=== PATIENT | female | born 1955 ===

== ENCOUNTER → 2018-05-26 | Outpatient (CLI) | payer OTHER ==
[~2018-05-26] MED LIST: ACE325 PO; EST3 PO; EST42T PV; FISH OIL 1,2001 CAP PO; GEMF600T92 PO; HYDR-2970 PO; NEB5 PO; SIMV-49 PO; TRILI135PT PO; UBID100C33 PO; VER100 PO
--- NOTE | 2018-05-26 13:49 | RADIOLOGY IMAGING REPORT ---
[place] [facility] [place] SARA ESPARZA : [id number] MR: [id number]: [id number] EXAM DATE: ORDERING PHYSICIAN: SHON SELF TECHNOLOGIST: Amy Bowers PROCEDURE:BILATERAL DIGITAL SCREENING MAMMOGRAM WITH CAD ASSISTED INTERPRETATION & 3D TOMOSYNTHESIS COMPARISON:Prior mammograms dated 05/04/17, 04/08/16, 04/10/15, 04/01/14, 03/22/13, 03/08/13 INDICATIONS:SCREENING FINDINGS: Moderately heterogeneous fibroglandular tissue is seen throughout the breasts. The parenchymal pattern has remained stable allowing for difference in mammographic technique & patient positioning. There is no evidence of malignant appearing mass, malignant appearing calcification or other secondary sign of malignancy in either breast. DIAGNOSTIC CATEGORY 1--NEGATIVE. RECOMMENDATIONS: ROUTINE MAMMOGRAM AND CLINICAL EVALUATION. IMPRESSION: BIRADS 1: Negative. No significant abnormality is seen. Dictated by: Mary Garcia M.D. on 05/26/2018 at 9:44 Transcribed by: LUANN on 05/26/2018 at 13:24 Approved by: Mary Garcia M.D. on 05/26/2018 at 13:48 [facility]
== END ==
LOC: MAMO 04:17
PROVIDERS: ATTEND Nurse Practitioner Psychiatric/Mental Health
DX: Z12.31 Encounter for screening mammogram for malignant neoplasm of breast (principal)
CPT/HCPCS: 77063; 77067